=== PATIENT | female | born 1985 | race Caucasian/White ===

== ENCOUNTER 2017-10-01 23:45 | Emergency (ER) | payer SELFPAY ==
[~2017-10-01] VITALS: Ht 170.2 cm; Wt 62.2 kg
[2017-10-01 23:46] VITALS: BP 171/111
[2017-10-02] MEDS ORDERED: GABA600T2 PO (00:31)
[2017-10-02] MEDS ORDERED: ALPR1TAB2 PO (00:31)
[2017-10-02] MEDS ORDERED: LISI1TAB5 PO (00:31)
[2017-10-02] MEDS ORDERED: PRAV20TA2 PO (00:31)
[2017-10-02] MEDS ORDERED: HYDR-3307 PO (00:31)
== END 2017-10-02 01:35 | disposition left against medical advice (07) ==
LOC: ED 23:59
DX: R56.9 Unspecified convulsions (principal); F11.20 Opioid dependence, uncomplicated; E10.8 Type 1 diabetes mellitus with unspecified complications; Z90.49 Acquired absence of other specified parts of digestive tract; Z79.4 Long term (current) use of insulin
CPT/HCPCS: 82962; 93005; 99283